=== PATIENT | female | born 1955 | race Caucasian/White ===

== ENCOUNTER → 2017-04-02 | Outpatient (CLI) | payer MEDICAID ==
--- NOTE | 2017-04-02 07:48 | US ---
EXAMINATION TYPE: US duplex aorta DATE OF EXAM: 04/02/2017 COMPARISON: NONE CLINICAL HISTORY: Z82.49 family hx of ischemic heart disease. Family history of AAA EXAM MEASUREMENTS: Abdominal Aorta: Proximal: 2.1 x 2.0cm Mid: 1.7 x 1.8cm Distal: 1.7 x 1.9cm Right Iliac: 0.8 x 1.0cm Left Iliac: 0.9 x 1.0cm Abdominal aorta and proximal iliac arteries appear wnl, no AAA seen at this time. IMPRESSION: No sonographic evidence of abdominal aortic aneurysm. Mild atheromatous plaquing.
== END | disposition home or self-care (01) ==
LOC: RADUSWWP 07:07
PROVIDERS: ATTEND Family Medicine
DX: Z13.89 Encounter for screening for other disorder (principal); I70.0 Atherosclerosis of aorta; Z82.49 Family history of ischemic heart disease and other diseases of the circulatory system
CPT/HCPCS: 93979

== ENCOUNTER → 2017-04-20 | Outpatient (CLI) | payer MEDICAID ==
--- NOTE | 2017-04-20 22:38 | MR ---
EXAMINATION TYPE: MR brain/orbits wo/w con DATE OF EXAM: 04/20/2017 COMPARISON: NONE HISTORY: 61-year-old female Right eye pain with headaches. Technique: Multiplanar, multisequence images of the brain were obtained before and after administrati on of 7.5 mL intravenous Gadavist gadolinium contrast. Diffusion-weighted imaging was performed. Sub sequent axial and coronal pre and postcontrast coned-down sequences through the orbits. FINDINGS: Diffusion weighted images demonstrate no evidence of an acute ischemic lesion in the brain. Midline sagittal images demonstrate the craniocervical junction to be normal. The ventricles are of normal caliber. There is no evidence of an acute intracranial hemorrhage, infarct, mass, mass-effect or an extra-axial fluid collection. T2/FLAIR weighted sequences show mild scattered white white matter change in the subcortical and deep white matter of both cerebral hemispheres numbering approximately 5 mm side. Findings are nonspecifi c and likely relate to changes of chronic small vessel ischemic disease. The optic nerves are symmetrical bilaterally. There is no enlargement of extraocular muscles of the orbits. Retrobulbar intra or extraconal mass is not seen. Preseptal or post septal orbital abnormality is not detected. Sella and cavernous sinuses appear normal. Paranasal sinuses show trace mucosal thickening in the ethmoid air cells and maxillary sinuses. Post contrast images demonstrate no evidence of pathologic enhancement in the orbit or intracranial cavity. IMPRESSION: 1. No acute intracranial abnormality seen. 2. Trace mucosal thickening in the ethmoid air cells and maxillary sinuses. 3. Scattered T2 bright white matter change, nonspecific, likely relating to minimal burden of chronic small vessel ischemic disease. 4. Unremarkable MRI orbits.
== END | disposition home or self-care (01) ==
LOC: RADMRIMAIN 17:40
PROVIDERS: ATTEND Family Medicine
DX: R90.82 White matter disease, unspecified (principal); H57.11 Ocular pain, right eye
CPT/HCPCS: 70543; 70553; A9581

== ENCOUNTER → 2019-10-31 | Outpatient (CLI) | payer MEDICAID ==
--- NOTE | 2019-10-31 12:42 | ECHOF ---
Referral Reason:I38 Endocarditis MEASUREMENTS -------- HEIGHT: 172.7 cm WEIGHT: 72.6 kg BP: RVIDd: 3.3 cm (< 3.3) IVSd: 1.0 cm (0.6 - 1.1) LVIDd: 3.8 cm (3.9 - 5.3) LVPWd: 1.0 cm (0.6 - 1.1) IVSs: 1.3 cm LVIDs: 3.1 cm LVPWs: 1.2 cm LA Diam: 4.3 cm (2.7 - 3.8) LAESV Index (A-L): 28.87 ml/m Ao Diam: 3.4 cm (2.0 - 3.7) AV Cusp: 2.0 cm (1.5 - 2.6) MV EXCURSION: 15.618 mm (> 18.000) MV EF SLOPE: 76 mm/s (70 - 150) EPSS: 0.5 cm MV E Leodan: 0.76 m/s MV DecT: 182 ms MV A Leodan: 0.76 m/s MV E/A Ratio: 1.01 RAP: 5.00 mmHg RVSP: 36.34 mmHg FINDINGS -------- Sinus rhythm. This was a technically good study. The left ventricular size is normal. Left ventricular wall thickness is normal. Overall left vent ricular systolic function is mildly impaired with, an EF between 45 - 50 %. Basal anteroseptal LV w all motion is hypokinetic. Mid anteroseptal LV wall motion is hypokinetic. Mid Basal Septal Hyp okinesis. The right ventricle is normal in size. The left atrium is mildly dilated. LA is midly dilated 29-33ml/m2. The right atrial size is normal. The aortic valve is trileaflet, and appears structurally normal. No aortic stenosis or regurgitation. Mild mitral regurgitation is present. Mild tricuspid regurgitation present. There is mild pulmonary hypertension. There is no pulmonic regurgitation present. The aortic root size is normal. There is no pericardial effusion. CONCLUSIONS -------- 1. The left ventricular size is normal. 2. Overall left ventricular systolic function is mildly impaired with, an EF between 45 - 50 %. 3. Basal anteroseptal LV wall motion is hypokinetic. 4. Mid anteroseptal LV wall motion is hypokinetic. 5. Mid Basal Septal Hypokinesis. 6. The left atrium is mildly dilated. 7. LA is midly dilated 29-33ml/m2. 8. The right atrial size is normal. 9. Mild mitral regurgitation is present. 10. Mild tricuspid regurgitation present. 11. There is mild pulmonary hypertension. 12. There is no pulmonic regurgitation present. [employer]AM MEMBER: Ayala Shay RDCS
--- NOTE | 2019-10-31 16:44 | US ---
EXAMINATION TYPE: US thyroid st tissue head/neck DATE OF EXAM: 10/31/2019 COMPARISON: NONE CLINICAL HISTORY: E04.2 nontoxic multinodular goiter. Goiter GLAND SIZE: Right Lobe: 5.3 x 1.9 x 1.8 cm Overall Parenchyma: homogenous Left Lobe: 5.4 x 1.4 x 1.5 cm Overall Parenchyma: homogeneous Isthmus Thickness: .5 cm NODULES RIGHT: # of nodules measured on right: 0 LEFT: # of nodules measured on left: 0 ISTHMUS: # of nodules measured in the isthmus: 0 Bilateral neck scanned, no evidence of lymphadenopathy. IMPRESSION: Normal thyroid ultrasound. Thyroid lobes are somewhat prominent.
== END | disposition home or self-care (01) ==
LOC: RADECHMAIN 10:59
PROVIDERS: ATTEND Family Medicine
DX: I08.1 Rheumatic disorders of both mitral and tricuspid valves (principal); I27.20 Pulmonary hypertension, unspecified; I50.1 Left ventricular failure, unspecified; E04.2 Nontoxic multinodular goiter
CPT/HCPCS: 76536; 93306

== ENCOUNTER → 2020-04-13 | Outpatient (CLI) | payer OTHER ==
--- NOTE | 2020-04-13 12:21 | NM ---
EXAMINATION TYPE: NM stress lexiscan cardiolite DATE OF EXAM: 04/13/2020 COMPARISON: NONE HISTORY: I42.9 Cardiomyopathy, unspecified TECHNIQUE: After the intravenous administration of 9.41 mCi Tc 99m Sestamibi - Cardiolite resting SP ECT images acquired 55 minutes post injection. The patient received 0.4mg Lexiscan, 24.4 mCi Tc 99m Sestamibi - Stress images obtained [address] injection FINDINGS: Review of stress and rest SPECT images demonstrates fixed defect involving the anterior wall and sept um compatible with remote insult. No definite evidence for stress-induced ischemia. Gated analysis sh ows normal wall motion with an estimated left ventricular ejection fraction of 61 %. IMPRESSION: fixed defect involving the anterior wall and septum compatible with remote insult. No definite eviden ce for stress-induced ischemia.
--- NOTE | 2020-04-13 12:52 | EST ---
EXERCISE STRESS AGE: 64 SEX: Female HT: 5'8" WT: 158 lbs. PROTOCOL: Cardiomyopathy STAGE: N/A DURATION OF EXERCISE: N/A HEART RATE REST: 64 BLOOD PRESSURE REST: 134/76 MAXIMUM HEART RATE ACHIEVED: 96 MAXIMUM BLOOD PRESSURE: 134/76 85% MPHR: 133 100% MPHR: 157 METS: N/A INDICATIONS: Cardiomyopathy CLINICAL INFORMATION: Baseline rhythm is sinus mechanism rate of 64, left bundle branch block, first-degree AV block. Baseline blood pressure 134/76 mmHg. The patient received injection of Lexiscan. Electrocardiograph monitoring revealed no evidence of diagnostic ischemic ST deviation. Cardiolite was injected per protocol. CONCLUSION: 1. Nondiagnostic electrocardiograph stress testing. 2. Nuclear images will be reported separately. MMODL / IJN: [id number] /
== END | disposition home or self-care (01) ==
LOC: RADNMMAIN 07:45
PROVIDERS: ATTEND Family Medicine
DX: I51.0 Cardiac septal defect, acquired (principal); I42.9 Cardiomyopathy, unspecified
CPT/HCPCS: 93017; 78452; A9500

== ENCOUNTER → 2024-02-15 | Day surgery (SDC) | payer MEDICARE ==
[~2024-02-15] MED LIST: ALPRAZolam 0.25 MG TAB PO PRN; ALPRAZolam 0.5 MG TAB PO PRN; ASPIRIN 325 MG TAB PO STA; NITROGLYCERIN SL TABS 0.4 MG TAB SUBLINGUAL PRN; RX INFO: IV CONTRAST WAS GIVEN 1 EACH MISC MISCELLANE PRN; SODIUM CHLORIDE 0.9% 1,000 ML IV SCH; SODIUM CHLORIDE 0.9% 1,000 ML in EMPTY BAG 1 BAG IV SCH
[2024-02-15] MEDS: IV FLUID CONTINUATION 1,000 ML IV ONE (11:10)
[2024-02-15 11:39] VITALS: TEMP 98.3
[2024-02-15] MEDS: MIDAZOLAM 2 MG/2 ML VIAL IVP ONE (12:05)
[2024-02-15] MEDS: LIDOCAINE 1% INJ 10MG/ML (20 ML MDV) SQ ONE (12:05)
[2024-02-15] MEDS: fentaNYL (PF) 50 MCG/1 ML VIAL IVP ONE (12:05)
[2024-02-15] MEDS: VERAPAMIL SYRINGE (5 MG/10 ML) INTRAARTER ONE (12:06)
[2024-02-15] MEDS: HEPARIN SODIUM 1,000 UN/ML (10ML VL) IVP ONE (12:13)
[2024-02-15] MEDS: IOPAMIDOL-370 100ML BTL INJ ONE ×2 (12:26)
--- NOTE | 2024-02-15 13:27 | P.CARDCATH ---
Date of Procedure: 02/15/24 Description of Procedure: DIAGNOSTIC CORONARY ANGIOGRAPHY, left ventriculography and LEFT HEART CATH REPORT PROCEDURES PERFORMED: Left heart catheterization Left ventriculography Selective bilateral coronary angiography Moderate conscious sedation 28 mins [Ultrasound assisted] Right radial access INDICATION: Cardiomyopathy, wall motion abnormality Patient had a echocardiogram in 2019 which showed an EF of 45 to 50% with regional wall motion normality. She had a repeat echocardiogram at our different facility which showed an EF of 30 to 35%. She has previously had a nuclear Lexiscan stress test in 2019 which showed some reversible perfusion defect. Patient never had a heart catheterization done to look into these abnormalities to rule out if there is any obstructive coronary artery disease. For this we scheduled for a heart catheterization procedure. CONSENT: I have explained the procedural steps of above-mentioned procedures in layman's terms to the patient. I discussed the risks (including but not limited to stroke, emergent vascular or cardiac surgery or ), benefits and altern ative therapies for the above-mentioned procedure. I discussed the risks of sedation/analgesia and blood product administration (if indicated). The patient has indicated understanding and acceptance of these risks. Conscious Sedation: Patient's ECG, heart rate, blood pressure, pulse oximetry were monitored throughout the duration of procedure under my direct supervision. 1 mg Versed and 50 mcg Fentanyl were used for induction of moderate conscious sedation. Total duration of moderate concious sedation 28 minutes. PROCEDURE: After explaining the risks, benefits and alternatives of the above mentioned procedures in detail to the patient, informed consent was obtained. Patient was taken to the catheterization lab, prepped and draped in usual sterile fashion using universal precuations. Ultrasound was used to identify the radial artery. 1% lidocaine was infiltrated over the right radial artery. A 6-Tristanian sheath was placed and secured in the right radial artery using modified Seldinger technique. The sheath was flushed and 5 mg verapamil was administered intra-arterially. J tipped wire was advanced under fluoroscopic guidance. Once the wire tip reached aortic root 4000 units of IV heparin was given. Over the wire JR4 diagnostic catheter was advanced. The wire in place the catheter was manipulated to cross the aortic valve and entered into LV under fluoroscopy guidance. The wire was removed and the catheter was flushed. LV pressures were obtained and pullback was performed under fluoroscopy. Catheter was manipulated to selectively engage the right coronary ostium. Right coronary angiography was performed in different angiographic projections. The JR4 diagnostic catheter was exchanged for a JL 3.5 diagnostic catheter over the J-wire. The wire was removed, catheter was flushed and manipulated under fluoroscopy to selectively engaged the left coronary ostium. Left coronary angioplasty was performed in different angiographic projections. Catheter was removed over the wire. Radial sheath was flushed. The right radial sheath was removed and a TR band was placed with excellent patent hemostasis was achieved. The patient tolerated the procedure well. Patient was transported back to the post catheterization holding area in stable condition. Angiographic images were reviewed in detail. HEMODYNAMICS: Aortic Pressure: 118/70 mmHg. LV pressure: 120/10 mmHg. LVEDP 14 mmHg. There was no significant gradient across the aortic valve. Left ventriculography: LVEF 45 to 50%, No obvious regional wall motion abnormality appreciated SELECTIVE CORONARY ARTERIOGRAPHY: LEFT MAIN: The left main is short and large caliber vessel. It bifurcates into the LAD and circumflex. Left main appears angiographically normal. LEFT ANTERIOR DESCENDING CORONARY ARTERY: LAD is a large caliber vessel which wraps around to the apex. Proximal LAD appears angiographically normal. Mid LAD appears angiographically normal. Distal LAD appears angiographically normal. LAD gives rise to a diagonal 1 and diagonal 2 branch. Diagonal 1 is a small caliber vessel and is angiographically patent. Diagonal 2 is a moderate caliber vessel and is angiographically patent. LEFT CIRCUMFLEX CORONARY ARTERY: It is nondominant vessel. Left circumflex is a moderate caliber vessel. It appears angiographically normal. LCx gives rise to a small OM1 branch which has a high takeoff. It appears angiographically normal. Distal LCx bifurcates into AV groove branch and OM branch which appears angiographically patent. RIGHT CORONARY ARTERY: Dominant vessel. The right coronary artery is a large caliber vessel which gives PDA and PLV branch. They appear angiographically normal. IMPRESSION: Mild luminal irregularities otherwise angiographically patent coronary arteries Normal LVEDP LVEF 45 to 50% PLAN: Aggressive risk factor modification per most recent ACC/AHA guidelines. 125 cc fluids for 4 hours Discharge home in 4 hours Follow-up in the office in 1-2 weeks. Performing Physician Rainer Chen MD, FACC, RPVI Thank you for allowing [facility] to participate in this patient's care. Feel free to reach out in case of any followup questions.
[2024-02-15 15:24] VITALS: PULSE 56
[2024-02-15 20:03] VITALS: RESP 16
[2024-02-15 20:05] VITALS: BP 109/57
== END ==
LOC: CATHCVL 09:25
PROVIDERS: ATTEND Student in an Organized Health Care Education/Training Program
DX: I42.9 Cardiomyopathy, unspecified (principal); E78.00 Pure hypercholesterolemia, unspecified; I34.0 Nonrheumatic mitral (valve) insufficiency; I44.7 Left bundle-branch block, unspecified; E03.9 Hypothyroidism, unspecified; G47.00 Insomnia, unspecified; E55.9 Vitamin D deficiency, unspecified; Z79.82 Long term (current) use of aspirin; Z79.890 Hormone replacement therapy; Z79.899 Other long term (current) drug therapy; Z87.891 Personal history of nicotine dependence
CPT/HCPCS: 93458; J2250; J2003; J1644; Q9967; J3010

== ENCOUNTER → 2024-06-10 | Day surgery (SDC) | payer MEDICARE ==
[~2024-06-10] MED LIST changes: -ALPRAZolam 0.25 MG TAB PO PRN; -ALPRAZolam 0.5 MG TAB PO PRN; -ASPIRIN 325 MG TAB PO STA; +HYDROmorphone 0.5 MG/0.5 ML SYRINGE IVP PRN; +LIDOCAINE 1% INJ 10MG/ML (20 ML MDV) ONE; +MIDAZOLAM 2 MG/2 ML VIAL IV PRN; -NITROGLYCERIN SL TABS 0.4 MG TAB SUBLINGUAL PRN; +PHENYLEPHRINE-0.9% NACL SYG 1,000 MCG/10 ML SYRINGE ONE; +PROPOFOL 10 MG/ML 20 ML VIAL IV ONE; -RX INFO: IV CONTRAST WAS GIVEN 1 EACH MISC MISCELLANE PRN; -SODIUM CHLORIDE 0.9% 1,000 ML IV SCH; -SODIUM CHLORIDE 0.9% 1,000 ML in EMPTY BAG 1 BAG IV SCH; +fentaNYL (PF) 50 MCG/ML 2 ML AMP ONE
[2024-06-10] MEDS: BUPIVACAINE (PF) 0.25% 30 ML VIAL SQ ONE (07:41)
[2024-06-10] MEDS: IV FLUID CONTINUATION 1,000 ML IV ONE (09:46)
[2024-06-10] MEDS: LACTATED RINGERS 1,000 ML IV SCH (09:59)
[2024-06-10] MEDS: ONDANSETRON 4 MG/2 ML VIAL IVP ONE (10:01)
[2024-06-10] MEDS: DEXAMETHASONE SOD PHOSPHATE 4 MG/ML 1 ML VIAL IV ONE (10:02)
[2024-06-10] MEDS: ceFAZolin 2 GM in DEXTROSE 5% IN WATER 50 ML IVPB PRN (11:30)
[2024-06-10] MEDS: ceFAZolin 1,000 MG in SODIUM CHLORIDE 0.9% 1,000 ML IRRIGATION ONE (11:34)
--- NOTE | 2024-06-10 12:45 | P.OP ---
Date of Procedure: 06/10/24 Preoperative Diagnosis: Hallux rigidus right foot Postoperative Diagnosis: Same Procedure(s) Performed: First metatarsal phalangeal joint arthrodesis right foot Implants: Arthrex MaxForce plate with locking and nonlocking screws, Arthrex bone allograft Anesthesia: PARISH Surgeon: Carlos Fragoso Estimated Blood Loss (ml): 3 Pathology: none sent Condition: stable Disposition: PACU Description of Procedure: The patient was brought into the op room and placed on table in the supine position. Timeout was taken to confirm correct patient identifiers, correct laterality of surgery, and correct procedure. Once all staff in the room was in agreement with the timeout, the patient was induced and placed under general anesthesia. A well-padded tourniquet was placed on the right ankle and then 20 cc 0.25% Marcaine was injected as a ankle block. The right foot was prepped and draped usual manner. The right foot was exsanguinated and the tourniquet inflated to 250 mmHg. Attention is directed over the first metatarsal phalangeal joint, where a linear incision was made between the neurovascular structures and the long extensor tendon. The incision was deepened down to the subcutaneous tissue careful to identify, void, and retracting neurovascular structures and cauterize any bleeding vessels. Dissection was carried down to the joint capsule and periosteum overlying the first metatarsal phalangeal joint. This tissue was incised medial to the extensor tendon and then reflected medially and laterally to expose the joint. There were large osteophytes throughout the first metatarsal head and base of the proximal phalanx. There is full-thickness cartilage loss on the metatarsal head and base of the proximal phalanx. The soft tissue was released to access the joint. A guidewire was placed to the central aspect of the first metatarsal head and advanced into the medullary canal. A circumferential saw was used to remove the osteophytes and shape the metatarsal head. A concave reamer was placed over the wire and used to remove the articular cartilage and subchondral bone. The guidewire was removed and inserted at the central aspect of the articular surface of the base of the proximal phalanx. A convex reamer was then used to remove the articular cartilage and the subchondral bone. The guidewire was removed and then a 2 oh drill bit was used to aggressively fenestrated the conjoining surfaces of the fusion site. The wound was thoroughly irrigated with antibiotic saline. Arthrex allograft was then placed between the arthrodesis segments. An appropriate size plate was then positioned dorsally across the fusion site. It was temporarily fixated and adjusted under fluoroscopy. Once joint alignment was acceptable a secondary wire was placed across the joint to maintain the position. Locking screws were placed in the hole in the plate distally and then proximally the drill hole for the compression device was made the compression device was inserted and used to fully compress the joint. Then it was temporarily fixated to hold it compressed. A nonlocking compression screw was placed in the compression slot of the plate. This provided more compression across the joint. The last 2 screws proximally were locking screws. Final fluoroscopic imaging showed good compression of the arthrodesis site with acceptable alignment of the joint. Hardware was properly positioned. The wound was thoroughly irrigated with antibiotic saline. Deep closure was done with 2-0 Vicryl. Subcutaneous closure done with 4 Monocryl. And skin closure done with 4-0 Stratafix in a running subcuticular manner. Dermal glue and Steri-Strips were placed across incision. An Arthrex jumpstart and dry sterile dressing applied to the foot. The tourniquet was released and capillary refill returned all digits on the right foot. The patient was placed in a well-padded, well molded plaster posterior mold/sugar-tong splint. The ankle and foot were held neutral position until the splint was dried. Then anesthesia was reversed and the patient taken recovery vital signs stable
[2024-06-10 12:52] VITALS: TEMP 97.5
[2024-06-10 13:28] VITALS: RESP 16
[2024-06-10 14:01] VITALS: BP 108/59; PULSE 66
== END | disposition home or self-care (01) ==
LOC: OR 09:05
PROVIDERS: ATTEND Podiatrist
DX: M20.21 Hallux rigidus, right foot (principal); M06.9 Rheumatoid arthritis, unspecified; E78.5 Hyperlipidemia, unspecified; E07.9 Disorder of thyroid, unspecified; K21.9 Gastro-esophageal reflux disease without esophagitis; Z79.1 Long term (current) use of non-steroidal anti-inflammatories (NSAID); Z79.890 Hormone replacement therapy; Z79.82 Long term (current) use of aspirin; Z79.899 Other long term (current) drug therapy; Z87.891 Personal history of nicotine dependence
CPT/HCPCS: 28750; J1100; J0690 ×2; J2405; J0665